=== PATIENT | female | born 1980 | race Caucasian/White ===

== ENCOUNTER 2019-10-09 14:51 | Emergency (ER) | payer OTHER ==
[~2019-10-09] VITALS: Ht 149.9 cm; Wt 73.0 kg
[2019-10-09 14:55] VITALS: BP 142/65
[2019-10-09] MEDS ORDERED: IBUPROFEN 600 MG TABLET. PO ONE (15:15)
--- NOTE | 2019-10-09 15:35 | RAD ---
Examination: 3 views of the left knee HISTORY: History of injury, pain COMPARISON: None available. Findings/ impression: There is nondisplaced oblique fracture of the medial proximal tibia extending just anterior to the medial tibial plateau. Electronically signed by: Grady Aranda MD (10/09/2019 3:32 PM) [id number]
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
--- NOTE | 2019-10-09 16:31 | RAD ---
Exam: CT left knee without contrast INDICATION: Fall with left knee pain, fracture on radiograph TECHNIQUE: Sequential axial images through the left knee obtained without IV contrast. Sagittal and coronal reformatted images were reconstructed from the axial data and reviewed. Comparisons: Radiograph same day FINDINGS: There is redemonstration of a mildly comminuted longitudinal oriented fracture through the anterior medial right tibial plateau extending down to the level of the metaphysis. There is mild surrounding soft tissue edema. Additionally there is a small to moderate suprapatellar effusion. No lipohemarthrosis is identified. No other fractures are seen. Joint spaces are otherwise well-maintained. Bone mineralization is normal. IMPRESSION: Mildly comminuted longitudinally oriented fracture to the anterior medial right tibial plateau extending down to the level of the metaphysis. There is mild surrounding soft tissue swelling and a small to moderate suprapatellar effusion. Exposure: One or more of the following in the visualized dose reduction techniques were utilized for this examination: 1. Automated exposure control 2. Adjustment of the MA and/or KV according to patient size 3. Use of iterative of reconstructive technique Electronically signed by: Alexey Diaz MD (10/09/2019 4:28 PM) [id number]
[2019-10-09] MEDS ORDERED: IBUP800T19 PO (17:00)
[2019-10-09] MEDS ORDERED: OXYC1TAB22 PO (17:00)
== END 2019-10-09 17:11 | disposition home or self-care (01) ==
LOC: ER 14:51
DX: S82.142A Displaced bicondylar fracture of left tibia, initial encounter for closed fracture (principal); Z88.0 Allergy status to penicillin; Z88.8 Allergy status to other drugs, medicaments and biological substances; W18.39XA Other fall on same level, initial encounter; Y93.89 Activity, other specified; Y92.89 Other specified places as the place of occurrence of the external cause; Y99.8 Other external cause status
CPT/HCPCS: 29505; 73562; 73700; 99284